=== PATIENT | male | born 1980 | race American Indian/Alaskan Native ===

== ENCOUNTER 2018-04-09 10:45 | Emergency (ER) | payer SELFPAY ==
[2018-04-09 10:54] VITALS: BP 106/52
[2018-04-09] MEDS ORDERED: ROCEPHIN IM ONE (11:43)
[2018-04-09] MEDS ORDERED: ZITHROMAX PO ONE (11:43)
[2018-04-09] MEDS ORDERED: XYLOCAINE 1% MPF 5 mL INFILTRATI ONE (11:43)
--- NOTE | 2018-04-09 11:49 | Emergency Department Report ---
ED General Adult HPI - General Chief complaint: Urogenital-Male Stated complaint: STD CHECK Time Seen by Provider: 04/09/18 11:32 Source: patient Mode of arrival: Ambulatory Limitations: No Limitations - History of Present Illness Initial comments: 38 yo male presents to the ED for STD prophylaxis. He states his girlfriend was diagnosed with mycoplasma genitalia, and told him that he also needs to be treated. Patient denies dysuria or penile discharge. -: days(s) (2) Severity scale (0 -10): 0 Improves with: none Worsens with: none Associated Symptoms: denies other symptoms Treatments Prior to Arrival: none - Related Data Previous Rx's Medication Instructions Recorded Last Taken Type Butalbit/Acetamin/Caff/Codeine 1 each PO Q6H PRN #20 capsule 12/23/13 Unknown Rx [Fioricet/Codeine [id number]] Allergies Allergy/AdvReac Type Severity Reaction Status Date / Time No Known Allergies Allergy Unverified 12/23/13 12:57 ED Review of Systems ROS: Stated complaint: STD CHECK Other details as noted in HPI Comment: All other systems reviewed and negative Constitutional: denies: fever Genitourinary: denies: dysuria, discharge ED Past Medical Hx - Past Medical History Previous Medical History?: No - Surgical History Past Surgical History?: No - Social History Smoking Status: Current Every Day Smoker Substance Use Type: None - Medications Home Medications: Home Medications Medication Instructions Recorded Confirmed Last Taken Type Butalbit/Acetamin/Caff/Codeine 1 each PO Q6H PRN #20 capsule 12/23/13 Unknown Rx [Fioricet/Codeine [id number]] ED Physical Exam - General Limitations: No Limitations General appearance: alert, in no apparent distress - Head Head exam: Present: atraumatic, normocephalic - Eye Eye exam: Present: normal appearance - ENT ENT exam: Present: mucous membranes moist - Neck Neck exam: Present: normal inspection - Respiratory Respiratory exam: Present: normal lung sounds bilaterally. Absent: respiratory distress - Cardiovascular Cardiovascular Exam: Present: regular rate, normal rhythm - GI/Abdominal GI/Abdominal exam: Present: soft. Absent: tenderness - exam: Present: other (deferred) - Extremities Exam Extremities exam: Present: normal inspection - Neurological Exam Neurological exam: Present: alert, oriented X3 - Psychiatric Psychiatric exam: Present: normal affect, normal mood - Skin Skin exam: Present: warm, dry, intact, normal color. Absent: rash ED Course Vital Signs 04/09/18 10:51 Temperature 99.0 F Pulse Rate 85 Respiratory 16 Rate Blood Pressure 106/52 O2 Sat by Pulse 100 Oximetry ED Medical Decision Making - Medical Decision Making 38-year-old male here for STD treatment. Treatment for mycoplasma is azithromycin. Rocephin will also be given to patient. Advised full STD workup as an outpatient. - Differential Diagnosis STD prophylaxis Critical care attestation.: If time is entered above; I have spent that time in minutes in the direct care of this critically ill patient, excluding procedure time. ED Disposition Clinical Impression: STD exposure Disposition: DC-01 TO HOME OR SELFCARE Is pt being admited?: No Condition: Stable Instructions: Sexually Transmitted Diseases (ED) Referrals: [facility] [Provider Group] - 3-5 Days [facility] [Outside] - 3-5 Days Time of Disposition: 11:49
== END 2018-04-09 12:25 | disposition home or self-care (01) ==
LOC: ED 10:45
DX: Z20.2 Contact with and (suspected) exposure to infections with a predominantly sexual mode of transmission (principal); F17.200 Nicotine dependence, unspecified, uncomplicated
CPT/HCPCS: 96372; 99282; J0696

== ENCOUNTER 2021-10-06 09:51 | Emergency (ER) | payer SELFPAY | END 2021-10-06 10:40 | disposition left against medical advice (07) | LOC: ED 09:51 | DX: Z00.00 Encounter for general adult medical examination without abnormal findings (principal); Z53.21 Procedure and treatment not carried out due to patient leaving prior to being seen by health care provider; Z20.2 Contact with and (suspected) exposure to infections with a predominantly sexual mode of transmission ==